=== PATIENT | female | born 1990 | race Caucasian/White ===

== ENCOUNTER → 2019-06-21 | Outpatient (CLI) | payer OTHER ==
[2019-06-21 18:36] LABS: BASO # 0.1 10^3/uL (0.0-0.2); BASO % 0.4 % (0.0-1.0); EOS # 0.1 10^3/uL (0.0-0.5); EOS % 0.7 % (0.0-3.0); HEMATOCRIT 39.6 % (36.0-47.0); HEMOGLOBIN 13.2 g/dl (12.0-15.5); LYMPH # 2.3 10^3/uL (1.5-5.0); LYMPH % 18.7 % (24.0-44.0); MEAN CORPUSCULAR HEMOGLOBIN 30.5 pg (27.0-33.0); MEAN CORPUSCULAR HGB CONC 33.3 g/dl (32.0-36.5); MEAN CORPUSCULAR VOLUME 91.5 fl (80.0-96.0); MONO # 0.8 10^3/uL (0.0-0.8); MONO % 6.2 % (0.0-5.0); NEUTROPHILS # 9.1 10^3/uL (1.5-8.5); NEUTROPHILS % 73.7 % (36.0-66.0); PLATELET COUNT, AUTOMATED 310 10^3/uL (150-450); RED BLOOD COUNT 4.33 10^6/uL (4.00-5.40); WHITE BLOOD COUNT 12.3 10^3/uL (4.0-10.0)
[2019-06-21 19:12] LABS: FREE T4 1.02 NG/DL (0.76-1.46)
[2019-06-22 04:58] LABS: CHLAMYDIA DNA AMPLIFICATION NEGATIVE (NEGATIVE); GC DNA AMPLIFICATION NEGATIVE (NEGATIVE)
[2019-06-22 11:11] LABS: RUBELLA IgG QUALITATIVE SUSCEPTIBLE (IMMUNE)
[2019-06-22 11:40] LABS: HEPATITIS C VIRUS ABY INDEX < 0.0 INDEX (<0.8); HIV 1&2 SCREEN CENTAUR NEGATIVE (NEGATIVE)
== END ==
LOC: M PLALAB 12:03
PROVIDERS: ATTEND Advanced Practice Midwife
DX: Z34.01 Encounter for supervision of normal first pregnancy, first trimester (principal)

== ENCOUNTER → 2019-07-20 | Outpatient (CLI) | payer OTHER | LOC: M PLALAB 12:35 | PROVIDERS: ATTEND Specialist | DX: Z34.81 Encounter for supervision of other normal pregnancy, first trimester (principal) ==

== ENCOUNTER → 2019-10-13 | Outpatient (REF) | payer OTHER ==
[2019-10-13 16:41] LABS: HEMATOCRIT 35.1 % (36.0-47.0); HEMOGLOBIN 11.8 g/dl (12.0-15.5); MEAN CORPUSCULAR HEMOGLOBIN 33.1 pg (27.0-33.0); MEAN CORPUSCULAR HGB CONC 33.6 g/dl (32.0-36.5); MEAN CORPUSCULAR VOLUME 98.3 fl (80.0-96.0); PLATELET COUNT, AUTOMATED 227 10^3/uL (150-450); RED BLOOD COUNT 3.57 10^6/uL (4.00-5.40)
== END ==
LOC: M PLALAB 12:20
PROVIDERS: ATTEND Nurse Practitioner Women's Health
DX: Z34.02 Encounter for supervision of normal first pregnancy, second trimester (principal)

== ENCOUNTER → 2020-01-03 | Outpatient (REF) | payer OTHER ==
[~2020-01-03] MED LIST: PRENCHW PO
== END ==
LOC: M SFHCWAGY 09:30
PROVIDERS: ATTEND Specialist
DX: Z34.83 Encounter for supervision of other normal pregnancy, third trimester (principal); Z3A.00 Weeks of gestation of pregnancy not specified

== ENCOUNTER 2020-02-04 02:25 | Outpatient (CLI) | payer OTHER ==
[~2020-02-04] VITALS: Ht 157.5 cm; Wt 81.9 kg
[2020-02-04 02:48] VITALS: BP 120/57
[2020-02-04] MEDS ORDERED: PRENCHW PO (02:53)
[2020-02-04 03:54] VITALS: BP 103/59
[2020-02-04 05:21] VITALS: BP 110/58
--- NOTE | 2020-02-04 06:04 | IPNPDOC ---
Obstetrical Progress Note Date of Service Feb 04, 2020 Subjective Pt presents to L&D triage with complaint of contractions. She reports they were irregular all day after a membrane sweep in the office and have been worsening since 9pm. Denies vaginal bleeding or LOF. Fetus is active. Objective Vital Signs Date Time Temp Pulse Resp B/P (MAP) Pulse Ox O2 Delivery O2 Flow Rate FiO2 02/04/20 05:21 78 16 110/58 (75) 02/04/20 02:48 97.1 100 Room Air Assessment Heart Rate (FHR): 125 Variability: Moderate Accelerations: Positive Decelerations: None Heart Rate Tracing: Category I Tocometer Contractions: Yes Frequency: irregular, other (every 5-6 minutes) Sterile Vaginal Examination Dilation: 1cm Effacement (%): 100% Station: -2 Cervical Consistency: Soft Cervical Position: Posterior Postion/Presentation: Cephalic presentation Assessment and Plan Age: 29 : 1 Term: 0 Pre-term: 0 Abortions: 0 Livin EGA at Admission: 40.5 Status: Reassuring (FHR Category I) Additional Comments SVE unchanged after 2.5 hours. A: IUP at 40 5/7 weeks, FHR category I, not in active labor P: Risks, benefits, and alternatives reviewed to IOL. All questions answered. Pt declines IOL and desires discharge to home. Reviewed palliative measures for latent labor. Reviewed s/sx of active labor, FKC, and danger signs. Reviewed access to care. Scheduled for IOL on 02/05. ZOEY VELEZ CNM Feb 04, 2020 06:03
== END 2020-02-04 06:00 | disposition home or self-care (01) ==
LOC: M LDO 02:25 → EEVIPCON 02:25 → M LDO 06:00
PROVIDERS: ATTEND Advanced Practice Midwife
DX: O47.1 False labor at or after 37 completed weeks of gestation (principal); Z3A.40 40 weeks gestation of pregnancy

== ENCOUNTER 2020-02-04 22:28 | Inpatient (IN) | payer OTHER ==
[~2020-02-04] VITALS: Ht 157.5 cm; Wt 79.8 kg
[2020-02-04 22:38] VITALS: BP 113/76
[2020-02-04 22:40] VITALS: BP 112/73
[2020-02-04 23:25] LABS: HEMATOCRIT 37.1 % (36.0-47.0); HEMOGLOBIN 12.7 g/dl (12.0-15.5); MEAN CORPUSCULAR HEMOGLOBIN 33.1 pg (27.0-33.0); MEAN CORPUSCULAR HGB CONC 34.2 g/dl (32.0-36.5); MEAN CORPUSCULAR VOLUME 96.6 fl (80.0-96.0); PLATELET COUNT, AUTOMATED 194 10^3/uL (150-450); RED BLOOD COUNT 3.84 10^6/uL (4.00-5.40); WHITE BLOOD COUNT 14.6 10^3/uL (4.0-10.0)
[2020-02-05] VITALS (93 sets, daily range): BP systolic 80–148; BP diastolic 44–130
--- NOTE | 2020-02-05 00:05 | HPEPDOC ---
Obstetrical History & Physical General Date of Admission Feb 04, 2020 at 22:56 History of Present Illness 29 yo G1 at 40 5/7 weeks by 8 week ultrasound (EDC=01/30/2020) presents with regular contractions every 5-6 minutes for several hours. They have increased in intensity. She was in the hospital the night before for contractions. Chief Complaint: Contractions, term Age: 29 : 1 Term: 0 Care Care: Good Care Dating Final EDC: Jan 30, 2020 Final EDC by: 1st trimester (US) Past Medical History Past Obstetrical History : Past Obstetrical History: Primgravida Past Medical History Surgical History: Denies/None Family History Significant Family History: No pertinent family hx Social History Marital Status: Single Family situation: Spouse/partner home * Smoker: non-smoker Alcohol: Denies Abuse Violence Screening Have you been hit/kicked/slapp: No Have you been sexually assault: No Allergies Coded Allergies: No Known Allergies (Unverified , 02/04/20) Medications Scheduled Pnv No.118/Iron Fumarate/FA ( 19 Chewable Tablet) 1 Each Tab.chew, 1 TAB PO DAILY Physical Examination Physical Examination GENERAL: Alert and oriented times three. BREAST: . ABDOMEN: Gravid and non-tender to touch. FETUS: Is vertex (VTX) by sterile vaginal examination (SVE), fetus is vertex (VTX) by Kevin. HEART RATE: Regular rate and rhythm. LUNGS: Clear to auscultation (CTA). EXTREMITIES: No edema. No clonus. Deep tendon reflexes (DTRs) + . Vital Signs/I&O Vital Signs Date Time Temp Pulse Resp B/P (MAP) Pulse Ox O2 Delivery O2 Flow Rate FiO2 02/04/20 22:40 89 16 112/73 (86) 02/04/20 22:38 97.1 Laboratory Data 24H LABS Laboratory Tests 2 02/04/20 23:04: Serology Scanned Report Hepatitis B Testing 02/04/20 23:14: Nucleated Red Blood Cells % (auto) 0.0 CBC/BMP Laboratory Tests 02/04/20 23:14 Pertinent Laboratoy Data Blood Type: A+ HIV: Negative Hepatitis B: Negative Hepatitis C: Negative Group B Streptococcus: Negative Vaginal Examination Dilation: 3 cm Effacement: 70% Station: -2 Cervical Consistency: Soft Cervical Position: Posterior Presentation: Cephalic presentation Assessment Variability: Moderate Accelerations: Positive Decelerations: None Tocometer Contractions: Yes Frequency: regular, every 3-7 min. Strength: palpated as moderate, palpated as strong Assessment/Plan Assessment Irena is a 29-year-old (G)1para (P)0--- at 40+5 weeks by 8-week ultrasound. Presents to Labor and Delivery (L&D) in labor. 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 Diet: . Group B Streptococcus (GBS) [negative]. Labs and intravenous (IV) per unit protocol. Counseled on Pitocin and induction of labor (IOL). Lactated Ringers (LR): Bolus mL, then at mL/hr. Anticipate [normal spontaneous delivery ()]. C-S as appropriate. JAE PENA MD Feb 05, 2020 00:05
[2020-02-05] MEDS ORDERED: PROMETHAZINE INJ 25 MG/ML VIAL (J2550) IV ONE (00:15)
[2020-02-05] MEDS ORDERED: BUTORPHANOL 2 MG/ML INJ (J0595) IV ONE (00:15)
[2020-02-05] MEDS ORDERED: FENTANYL 2MCG/ML ROPIVACAINE 0.2% IN 0.9% NACL 100ML IVBAG As Ordered ONE (00:51)
[2020-02-05] MEDS ORDERED: ePHEDrine SULFATE 25 MG/5 ML(5MG/ML) SYRINGE As Ordered ONE (02:18)
[2020-02-05] MEDS ORDERED: REFRIGERATOR IV KEYS XX PRN (02:30)
[2020-02-05] MEDS ORDERED: EPIDURAL COMMENT XX SCH (02:30)
[2020-02-05] MEDS ORDERED: NALOXONE INJ 0.4MG/1ML VIAL (J2310 PER 1MG) IV PRN (02:30)
[2020-02-05] MEDS ORDERED: LACTATED RINGER'S 1000 ML IV PRN ×2 (02:30→09:30)
[2020-02-05] MEDS ORDERED: ONDANSETRON 4MG/2ML VIAL IV PRN ×2 (02:30→19:45)
[2020-02-05] MEDS ORDERED: EPIDURAL/PCA KEYS XX PRN (02:30)
[2020-02-05] MEDS ORDERED: diphenhydrAMINE 50MG/ML VIAL (J1200) IV PRN (02:30)
[2020-02-05] MEDS: ePHEDrine SULFATE 25 MG/5 ML(5MG/ML) SYRINGE IV PRN ×6 (02:32→09:51)
[2020-02-05] MEDS: FENTANYL/ROPIVACAINE/NACL BAG 100 ML EPIDURAL SCH ×2 (02:36→11:50)
[2020-02-05] MEDS ORDERED: OXYTOCIN 30 UNITS IN 0.9% NaCl 500ML IV BAG (J2590) As Ordered ONE (05:21)
[2020-02-05] MEDS ORDERED: OXYTOCIN DRIP 30 UNITS in IV 1 EA IV SCH (05:30)
[2020-02-05] MEDS: LR 1,000 ML IV SCH ×2 (05:31→10:01)
[2020-02-05] MEDS ORDERED: UNASYN 3 GM VIAL As Ordered ONE (17:41)
[2020-02-05] MEDS ORDERED: AMPICILLIN SOD/SULBACTAM SOD 3 GM in D5W MINI-BAG PLUS 100 ML IV ONE (18:00)
[2020-02-05 18:22] LABS: CORD GAS ABE A -10.3; CORD GAS HCO3 A 16.2 MEQ/L; CORD GAS PH A 7.248 UNITS; CORD GAS PO2 A 27.7 mmHg; CORD GAS SBC A 15.6 MEQ/L; CORD GAS TCO2 A 17.4 MEQ/L
[2020-02-05 18:27] LABS: CORD GAS PCO2 V 42.6 mmHg
[2020-02-05 18:28] LABS: CORD GAS ABE V -10.4; CORD GAS O2 SAT V 43.7 %; CORD GAS PH V 7.218 UNITS; CORD GAS PO2 V 23.4 mmHg; CORD GAS SBC V 15.3 MEQ/L; CORD GAS TCO2 V 18.3 MEQ/L
[2020-02-05] MEDS ORDERED: MEASLES,MUMPS,RUBELLA VACCINE INJ (MMR-II) (90707) SC SCH (19:45)
[2020-02-05] MEDS ORDERED: IBUPROFEN 600MG TAB PO PRN (19:45)
[2020-02-05] MEDS ORDERED: ACETAMINOPHEN 500 MG TAB PO PRN (19:45)
[2020-02-05] MEDS ORDERED: ACETAMINOPHEN TAB 650MG DOSE (2X325MG) PO PRN (19:45)
[2020-02-05] MEDS ORDERED: RHOGAM 300 MCG (1500 IU) INJ (J2790) IM SCH (19:45)
[2020-02-05] MEDS ORDERED: IBUPROFEN 800 MG TAB PO PRN (19:45)
[2020-02-05] MEDS ORDERED: METHYLERGONOVINE MALEATE 0.2 MG TAB PO PRN (19:45)
[2020-02-05] MEDS ORDERED: DIBUCAINE 1% OINTMENT 30GM TOP PRN (19:45)
[2020-02-05] MEDS ORDERED: DOCUSATE SODIUM 100 MG CAP PO PRN (19:45)
[2020-02-05] MEDS ORDERED: OXYTOCIN DRIP 30 UNITS in IV 1 EA IV ONE (19:45)
--- NOTE | 2020-02-05 19:49 | DNPDOC ---
[facility] Delivery Note Delivery Note DATE OF DELIVERY: 02/05/2020 PREDELIVERY DIAGNOSIS: 40-5/7 weeks' gestation, labor. POST DELIVERY DIAGNOSIS: Delivered, possible chorioamnionitis PROCEDURE: Spontaneous vaginal delivery [employer] SAL[employer] REPRESENTATIVE: Dr. Jae Pena MD ANESTHESIA: epidural ESTIMATED BLOOD LOSS: 300 mL. FINDINGS: 7 pound 10 ounce female , Score 3/8/9, nuchal cord times one. DELIVERY SUMMARY: Patient is a 29 year-old 1 now para 1 who was admitted to labor and delivery for labor. She had Pitocin augmentation. She had AROM performed at 7:31 am. She had a one hour second stage of labor resulting in a 3362 gram female infant. Nuchal cord x 1 reduced manually. Thick meconium noted only at the time of delivery. Pt had fever of 100.8 F late in the second stage of labor. One dose of Unasyn was administered, however, the entire dose was not completed before the baby was delivered. Due to maternal fever, and tachycardia there was suspicion for chorioamnionitis. Placenta to pathology. Shoulders delivered with ease.. Placenta retained for one hour; It was removed manually and appeared to be intact. Pt received IV Pitocin after delivery of placenta. No vaginal lacerations present. Cord blood gas obtained. Sponge and needle counts correct. JAE PENA MD Feb 05, 2020 19:49
[2020-02-06 06:13] VITALS: BP 114/54
[2020-02-06] MEDS: PRENATAL VITAMINS CHEWABLE TABLET PO SCH (09:32)
[2020-02-07 05:59] VITALS: BP 98/52
[2020-02-07] MEDS: PRENATAL VITAMINS CHEWABLE TABLET PO SCH (08:19)
== END 2020-02-07 12:30 | disposition home or self-care (01) | DRG 560 ==
LOC: M LDO 22:28 → M LDI 22:56 → M OBS 02-05 21:46
PROVIDERS: ADMIT Specialist; ATTEND Specialist
PROC: 10E0XZZ Delivery of Products of Conception, External Approach (ICD-10-PCS; principal; 2020-02-05)
PROC: 10907ZC Drainage of Amniotic Fluid, Therapeutic from Products of Conception, Via Natural or Artificial Opening (ICD-10-PCS; 2020-02-05)
DX: O48.0 Post-term pregnancy (principal); O41.1230 Chorioamnionitis, third trimester, not applicable or unspecified; Z3A.40 40 weeks gestation of pregnancy; O77.0 Labor and delivery complicated by meconium in amniotic fluid; O69.81X0 Labor and delivery complicated by cord around neck, without compression, not applicable or unspecified; Z37.0 Single live birth

== ENCOUNTER → 2021-12-02 | Outpatient (CLI) | payer OTHER | LOC: M PLALAB 11:35 | PROVIDERS: ATTEND Obstetrics & Gynecology | DX: Z34.81 Encounter for supervision of other normal pregnancy, first trimester (principal) ==

== ENCOUNTER → 2021-12-19 | Outpatient (CLI) | payer OTHER ==
[2021-12-19 14:58] LABS: HEMATOCRIT 36.2 % (36.0-47.0); HEMOGLOBIN 12.5 g/dl (12.0-15.5); MEAN CORPUSCULAR HEMOGLOBIN 31.5 pg (27.0-33.0); MEAN CORPUSCULAR HGB CONC 34.5 g/dl (32.0-36.5); MEAN CORPUSCULAR VOLUME 91.2 fl (80.0-96.0); PLATELET COUNT, AUTOMATED 259 10^3/uL (150-450); RED BLOOD COUNT 3.97 10^6/uL (4.00-5.40); WHITE BLOOD COUNT 9.5 10^3/uL (4.0-10.0)
[2021-12-19 16:13] LABS: GC DNA AMPLIFICATION NEGATIVE (NEGATIVE)
[2021-12-19 16:31] LABS: HEPATITIS C VIRUS ABY INDEX < 0.0 INDEX (<0.8); HIV 1&2 SCREEN CENTAUR NEGATIVE (NEGATIVE)
== END ==
LOC: M PLALAB 10:22
PROVIDERS: ATTEND Obstetrics & Gynecology
DX: Z34.81 Encounter for supervision of other normal pregnancy, first trimester (principal)

== ENCOUNTER → 2022-02-11 | Outpatient (CLI) | payer OTHER | LOC: M WHC 10:18 | PROVIDERS: ATTEND Advanced Practice Midwife | DX: Z34.92 Encounter for supervision of normal pregnancy, unspecified, second trimester (principal) ==

== ENCOUNTER → 2022-04-01 | Outpatient (CLI) | payer OTHER ==
[2022-04-01 15:53] LABS: HEMATOCRIT 36.2 % (36.0-47.0); HEMOGLOBIN 11.7 g/dl (12.0-15.5); MEAN CORPUSCULAR HGB CONC 32.3 g/dl (32.0-36.5); PLATELET COUNT, AUTOMATED 239 10^3/uL (150-450); RED BLOOD COUNT 3.77 10^6/uL (4.00-5.40); WHITE BLOOD COUNT 9.9 10^3/uL (4.0-10.0)
== END ==
LOC: M PLALAB 11:26
PROVIDERS: ATTEND Advanced Practice Midwife
DX: Z34.92 Encounter for supervision of normal pregnancy, unspecified, second trimester (principal)

== ENCOUNTER → 2022-06-03 | Outpatient (REF) | payer OTHER | LOC: M PLALAB 13:30 | PROVIDERS: ATTEND Specialist | DX: Z34.83 Encounter for supervision of other normal pregnancy, third trimester (principal); Z3A.00 Weeks of gestation of pregnancy not specified ==

== ENCOUNTER 2022-07-10 03:29 | Inpatient (IN) | payer OTHER ==
[~2022-07-10] VITALS: Ht 157.5 cm; Wt 87.9 kg
[2022-07-10] VITALS (52 sets, daily range): BP systolic 86–185; BP diastolic 49–136
[2022-07-10] MEDS ORDERED: HOME MED LIST COMPLETE! XX SCH (03:55)
[2022-07-10] MEDS ORDERED: CARBOPROST TROMETHAMINE 250 MCG/ML AMP IM PRN (04:25)
[2022-07-10] MEDS ORDERED: LIDOCAINE 1% MDV 20ML VIAL INFIL PRN (04:25)
[2022-07-10] MEDS ORDERED: OXYTOCIN INJ 10UNITS/ML 1ML VIAL IM PRN (04:25)
[2022-07-10] MEDS ORDERED: LACTATED RINGER'S 1000 ML IV STA (04:25)
[2022-07-10] MEDS ORDERED: METHYLERGONOVINE MALEATE 0.2MG/ML 1ML VIAL IM PRN (04:25)
[2022-07-10] MEDS ORDERED: OXYTOCIN DRIP 30 UNITS in IV 1 EA IV PRN ×4 (04:25)
[2022-07-10] MEDS ORDERED: TRANEXAMIC ACID INJection 1,000 MG in NS 100 ML IV PRN (04:25)
[2022-07-10] MEDS ORDERED: PENICILLIN G POTASSIUM 5 MU IV 5 MU in D5W MINI-BAG PLUS 100 ML IV STA (04:25)
[2022-07-10] MEDS: LR 1,000 ML IV SCH ×3 (05:13→17:38)
[2022-07-10 05:58] LABS: HEMATOCRIT 38.4 % (36.0-47.0); HEMOGLOBIN 12.7 g/dl (12.0-15.5); MEAN CORPUSCULAR HEMOGLOBIN 31.4 pg (27.0-33.0); MEAN CORPUSCULAR HGB CONC 33.1 g/dl (32.0-36.5); PLATELET COUNT, AUTOMATED 220 10^3/uL (150-450); RED BLOOD COUNT 4.04 10^6/uL (4.00-5.40); WHITE BLOOD COUNT 10.3 10^3/uL (4.0-10.0)
[2022-07-10] MEDS ORDERED: NALOXONE INJ 0.4MG/1ML VIAL IV PRN (07:05)
[2022-07-10] MEDS ORDERED: diphenhydrAMINE 50MG/ML VIAL IV PRN (07:05)
[2022-07-10] MEDS ORDERED: LR 500 ML IV PRN ×2 (07:05→09:45)
[2022-07-10] MEDS ORDERED: ONDANSETRON 4MG 2ML VIAL IV PRN (07:05)
[2022-07-10] MEDS ORDERED: EPIDURAL/PCA KEYS XX PRN (07:05)
[2022-07-10] MEDS: FENTANYL/ROPIVACAINE/NACL BAG 100 ML EPIDURAL SCH ×2 (08:09→15:46)
[2022-07-10] MEDS: ePHEDrine SULFATE 25 MG/5 ML(5MG/ML) SYRINGE IVP PRN ×3 (09:06→09:23)
[2022-07-10] MEDS ORDERED: OXYTOCIN DRIP 30 UNITS in IV 1 EA IV SCH (09:15)
[2022-07-10] MEDS: PEN G POT 3,000,000 UNIT/50 ML 3,000,000 UNIT in IV 1 EA IV SCH ×3 (09:23→17:38)
[2022-07-10] MEDS ORDERED: ePHEDrine SULFATE 25 MG/5 ML(5MG/ML) SYRINGE IVP PRN (09:45)
[2022-07-10] MEDS ORDERED: IBUPROFEN 800 MG TAB PO PRN (19:40)
[2022-07-10] MEDS ORDERED: RHOGAM 300MCG (1500IU) INJ IM SCH (19:40)
[2022-07-10] MEDS ORDERED: DIBUCAINE 1% OINTMENT 30GM TOP PRN (19:40)
[2022-07-10] MEDS ORDERED: ACETAMINOPHEN 500 MG TAB PO PRN (19:40)
[2022-07-10] MEDS ORDERED: DOCUSATE SODIUM 100MG CAPSULE PO PRN (19:40)
[2022-07-10] MEDS ORDERED: ACETAMINOPHEN TAB 650MG DOSE (2X325MG) PO PRN (19:40)
[2022-07-10] MEDS ORDERED: IBUPROFEN 600MG TAB PO PRN (19:40)
[2022-07-10] MEDS ORDERED: METHYLERGONOVINE MALEATE 0.2 MG TAB PO PRN (19:40)
[2022-07-11 06:00] VITALS: BP 93/53
[2022-07-11] MEDS: PRENATAL VITAMINS CHEWABLE TABLET PO SCH (08:47)
[2022-07-11 18:00] VITALS: BP 106/61
[2022-07-12 06:00] VITALS: BP 117/63
[2022-07-12] MEDS: PRENATAL VITAMINS CHEWABLE TABLET PO SCH (09:00)
[2022-07-12] MEDS ORDERED: MEASLES,MUMPS,RUBELLA VACCINE INJ (MMR-II) SC.IMMUN ONE (09:00)
[2022-07-12] MEDS ORDERED: IBUP-1022 PO (10:16)
[2022-07-12] MEDS ORDERED: ACET-683 PO (10:16)
[2022-07-12] MEDS ORDERED: COLA100C5 PO (10:16)
== END 2022-07-12 12:20 | disposition home or self-care (01) | DRG 560 ==
LOC: M LDO 03:29 → M LDI 04:31 → M OBS 21:30
PROVIDERS: ADMIT Advanced Practice Midwife; ATTEND Specialist
PROC: 10E0XZZ Delivery of Products of Conception, External Approach (ICD-10-PCS; principal; 2022-07-10)
DX: O48.0 Post-term pregnancy (principal); O99.824 Streptococcus B carrier state complicating childbirth; Z3A.41 41 weeks gestation of pregnancy; Z37.0 Single live birth; Z86.16 Personal history of COVID-19

== ENCOUNTER → 2023-09-30 | Outpatient (REF) | payer OTHER ==
[~2023-09-30] MED LIST changes: +ACET-683 PO; +COLA100C5 PO; +IBUP-1022 PO
[2023-10-03 12:04] LABS: HPV APTIMA Not Detected (Not Detected)
== END ==
LOC: M SFHCWAGY 10:50
PROVIDERS: ATTEND Nurse Practitioner Family
DX: Z12.4 Encounter for screening for malignant neoplasm of cervix (principal)

== ENCOUNTER → 2025-04-11 | Outpatient (CLI) | payer OTHER ==
[~2025-04-11] MED LIST changes: -IBUP-1022 PO; +IBUP600T42 PO
[2025-04-11 13:46] LABS: PLATELET COUNT, AUTOMATED 300 10^3/uL (150-450)
[2025-04-11 14:21] LABS: HIV 1&2 SCREEN NEGATIVE (NEGATIVE)
[2025-04-11 14:28] LABS: HEPATITIS C VIRUS ABY INDEX 0.02 INDEX (<0.8)
[2025-04-11 15:24] LABS: Trichomonas vaginalis (AMP) NOT DETECTED (NEGATIVE)
[2025-04-11 15:47] LABS: GC DNA AMPLIFICATION NEGATIVE (NEGATIVE)
== END ==
LOC: M PLALAB 09:25
PROVIDERS: ATTEND Specialist
DX: Z34.81 Encounter for supervision of other normal pregnancy, first trimester (principal)